=== PATIENT | male | born 1965 | race Two or more races ===

== ENCOUNTER 2017-05-25 10:11 | Emergency (ER) | payer BC, OTHER ==
[2017-05-25] MEDS ORDERED: Aspirin 81 MG Tab.Chew ONE (10:14)
[2017-05-25] MEDS ORDERED: Aspirin 81 MG Tab.Chew PO ONE (10:45)
--- NOTE | 2017-05-25 10:51 | EDM.PDOC ---
ED HPI GENERAL MEDICAL PROBLEM - General Chief Complaint: Chest Pain Stated Complaint: CHEST PAIN Time Seen by Provider: 05/25/17 10:35 Source of Information: Reports: Patient History Limitations: Reports: No Limitations - History of Present Illness INITIAL COMMENTS - FREE TEXT/NARRATIVE: 52-year-old male with intermittent chest pain for the past several months. It usually occurs with activity such as walking, tends to worsen if he keeps walking and requires resting for the pain to go away. It's not consistent however and after resting at times he can start walking again and the pain does not recur. 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 Last night he was awoken with the chest pain radiating into his left arm and it lasted 10-15 minutes. This was unusual to get the pain at rest so it concerned him and he thought he would come in and have it checked today. He gets no shortness of breath or nausea with the pain, he does get occasional diaphoresis not consistently. He had a stress test several years ago , he thinks "5 years ago" which apparently was normal. He is a smoker but does not have significant family history of heart disease. He has no pain currently and has not had any recurrence of the pain since the middle of the night. Improves with: Reports: Rest Worsens with: Reports: Other (Usually occurs with activity) Associated Symptoms: Reports: Diaphoresis (Intermittent diaphoresis). Denies: Fever/Chills, Nausea/Vomiting, Shortness of Breath, Weakness - Related Data Allergies Allergy/AdvReac Type Severity Reaction Status Date / Time No Known Allergies Allergy Verified 05/25/17 10:22 Home Meds: Home Meds traMADol [Ultram] 50 mg PO Q6H PRN 07/18/16 [History] Past Medical History Musculoskeletal History: Reports: Back Pain, Chronic - Past Surgical History HEENT Surgical History: Reports: Tonsillectomy Social & Family History - Tobacco Use Smoking Status *Q: Current Every Day Smoker Years of Tobacco use: 1 Packs/Tins Daily: 0.3 ED ROS GENERAL - Review of Systems Review Of Systems: See Below Constitutional: Denies: Fever, Chills HEENT: Reports: No Symptoms Respiratory: Denies: Shortness of Breath, Cough GI/Abdominal: Denies: Abdominal Pain, Nausea, Vomiting : Reports: No Symptoms Musculoskeletal: Reports: Other (has a chronic sciatic pain which he takes tramadol) ED EXAM, GENERAL - Physical Exam Exam: See Below Exam Limited By: No Limitations General Appearance: Alert, No Apparent Distress Eye Exam: Bilateral Eye: EOMI (No jaundice, good hydration) Head: Atraumatic Respiratory/Chest: No Respiratory Distress, Lungs Clear Cardiovascular: Regular Rate, Rhythm. No: Extra Beats GI/Abdominal: Soft, Non-Tender Extremities: Normal Inspection. No: Pedal Edema Neurological: Alert, Oriented Psychiatric: Normal Affect, Normal Mood Skin Exam: Warm, Dry EKG INTERPRETATION Rhythm: NSR [place]: Normal P-Wave: Present QRS: Normal ST-T: Normal QT: Normal Course - Vital Signs Last Recorded V/S: Last Vital Signs Temp 97.0 F 05/25/17 10:29 Pulse 69 05/25/17 10:29 Resp 20 05/25/17 10:29 BP 141/71 H 05/25/17 10:29 Pulse Ox 99 05/25/17 10:29 - Orders/Labs/Meds Labs: Laboratory Tests 05/25/17 05/25/17 Range/Units 10:41 10:41 WBC 6.3 (4.5-11.0) K/uL RBC 4.61 (4.30-5.90) M/uL Hgb 14.4 (12.0-15.0) g/dL Hct 43.0 (40.0-54.0) % MCV 93 (80-98) fL MCH 31 (27-31) pg MCHC 34 (32-36) % Plt Count 185 (150-400) K/uL Neut % (Auto) 57 (36-66) % Lymph % (Auto) 31 (24-44) % [place] % (Auto) 10 H (2-6) % Eos % (Auto) 2 (2-4) % Baso % (Auto) 0 (0-1) % Sodium 141 (140-148) mmol/L Potassium 4.2 (3.6-5.2) mmol/L Chloride 104 (100-108) mmol/L Carbon Dioxide 26 (21-32) mmol/L Anion Gap 10.7 (5.0-14.0) mmol/L BUN 12 (7-18) mg/dL Creatinine 0.8 (0.8-1.3) mg/dL Est Cr Clr Drug Dosing 97.47 mL/min Estimated GFR (MDRD) > 60 (>60) Glucose 125 H (74-106) mg/dL Calcium 9.0 (8.5-10.1) mg/dL Troponin I 0.202 H* (0.000-0.056) ng/mL Meds: Medications Discontinued Medications Generic Name Dose Route Start Last Admin Trade Name Freq PRN Reason Stop Dose Admin Aspirin 324 mg 05/25/17 10:45 05/25/17 10:14 Aspirin PO 05/25/17 10:46 324 mg ONETIME ONE Administration Aspirin Confirm 05/25/17 10:14 Aspirin Administered 05/25/17 10:15 Dose 324 mg .ROUTE .STK-MED ONE Atorvastatin Calcium 80 mg 05/25/17 11:37 05/25/17 11:45 Lipitor PO 05/25/17 11:38 80 mg ONETIME ONE Administration Clopidogrel Bisulfate 600 mg 05/25/17 11:13 05/25/17 11:22 Plavix PO 05/25/17 11:14 600 mg ONETIME ONE Administration Heparin Sodium (Porcine) 4,000 units 05/25/17 11:37 05/25/17 12:00 Heparin Sodium IVPUSH 05/25/17 11:38 4,000 units ONETIME ONE Administration Heparin Sodium/Dextrose 25,000 units in 500 mls @ 0 mls/hr 05/25/17 11:45 11:53 Heparin 25,000 Units In D5w 500 Ml IV 6.78 units/kg/hr TITRATE ADELE 12 mls/hr Protocol Administration 800 UNITS/KG/HR - Re-Assessments/Exams Free Text/Narrative Re-Assessment/Exam: 05/25/17 10:52 EKG was normal. The patient was given 4 low-dose aspirin chewables. A CBC, CMP, troponin were obtained. Patient was monitored while awaiting lab results. 05/25/17 11:46 CBC and BMP were reassuring other than a mildly elevated glucose at 125, however troponin was elevated at 0.202. I discussed the results with the patient and explained to him that he likely had some level of an CT overnight. He was then given 600 mg of Plavix by mouth, 80 mg of Atorvastatin by mouth, and consultation with the hospitalist in [place] was obtained for transfer. 4000 units of heparin was then bolused and patient was given 800 units an hour of heparin and transfer was arranged. Departure - Departure Time of Disposition: 12:34 Disposition: DC/Tfer to Other 70 Condition: Good Clinical Impression: Non-ST elevated myocardial infarction (non-STEMI), Non-STEMI - Discharge Information Referrals: PCP,None [Primary Care Provider] - Forms: ED Department Discharge Care Plan Goals: Patient was given aspirin, Plavix, Atorvastatin by mouth, heparin was started and he was transferred to [place] for cardiology evaluation. Patient left pain free and stable.
[2017-05-25 10:53] VITALS: BP 141/71
[2017-05-25] MEDS ORDERED: Clopidogrel 75 MG Tab PO ONE (11:13)
[2017-05-25] MEDS ORDERED: atorvaSTATin 20 MG Tab PO ONE (11:37)
[2017-05-25] MEDS ORDERED: Heparin Sodium 5,000 Units/ML Vial IVPUSH ONE (11:37)
[2017-05-25] MEDS ORDERED: Heparin Sodium/D5W 25,000 UNITS/500 ML BAG IV SCH (11:45)
== END 2017-05-25 12:37 | disposition other institution (70) ==
LOC: JP.ED 10:11
DX: I21.4 Non-ST elevation (NSTEMI) myocardial infarction (principal); F17.210 Nicotine dependence, cigarettes, uncomplicated
CPT/HCPCS: 36415; 80048; 84484; 85025; 93005; 96365; 96376; 99285; A9270; J1644